=== PATIENT | male | born 1970 | race Caucasian/White ===

== ENCOUNTER 2017-10-13 13:07 | Emergency (ER) | payer OTHER ==
[~2017-10-13] VITALS: Ht 175.3 cm; Wt 121.8 kg
[~2017-10-13 13:07] MED LIST: BLOOD PRESSURE MEDS; COUMADIN 1MG1 MG/TAB PO; COUMADIN 2MG2 MG/TAB PO; COUMADIN4 MG PO; LOVENOX150 MG/ML SC; NO HOME MEDICATIONS; NORCO 325 MG-51 TAB PO; NORCO 325 MG-7.1 TAB PO; PERCOCET 500 MG1 TAB PO; PHENERGAN 25 TA25 MG PO; TYLENOL 500MG500 MG PO; TYLENOL PM EXTR1 TA1 PO; ZESTORETIC 12.51 TA1 PO
[2017-10-13 13:10] VITALS: TEMP 100.3
[2017-10-13] MEDS ORDERED: ASPIRIN 81M81 MG/TA2 PO (14:49)
[2017-10-13] MEDS ORDERED: CLEOCIN HCL300 MG PO (15:14)
[2017-10-13 15:23] VITALS: BP 189/140; PULSE 97
[2017-10-13] MEDS ORDERED: ZESTORETIC 12.51 TA1 PO (15:24)
== END 2017-10-13 15:43 | disposition home or self-care (01) ==
LOC: COL.ER 13:07
DX: H00.031 Abscess of right upper eyelid (principal); H00.021 Hordeolum internum right upper eyelid; Z79.82 Long term (current) use of aspirin

== ENCOUNTER 2018-01-25 12:00 | Outpatient (RCR) | payer OTHER ==
[~2018-01-25 12:00] MED LIST changes: +ASPIRIN 81M81 MG/TA2 PO; +CLEOCIN HCL300 MG PO
== END 2018-01-25 15:43 | disposition home or self-care (01) ==
LOC: WSPT 12:00
DX: Z47.1 Aftercare following joint replacement surgery (principal); Z96.652 Presence of left artificial knee joint

== ENCOUNTER 2022-01-22 18:10 | Emergency (ER) | payer OTHER ==
[~2022-01-22] VITALS: Ht 172.7 cm; Wt 114.5 kg
[2022-01-22 18:20] VITALS: TEMP 98
[2022-01-22 18:43] LABS: COLLECTION METHOD CLEAN CATCH
[2022-01-22 18:47] LABS: HEMATOCRIT 46.7 % (42.0-52.0); HEMOGLOBIN 16.1 g/dl (13.5-18.0); MEAN CELL VOLUME 84 fl (80.0-100.0); MEAN CORPUSCULAR HEMOGLOBIN 29 pg (27-31); MEAN CORPUSCULAR HGB CONC 35 g/dl (33.0-37.0); MEAN PLATELET VOLUME 9.3 fl (7.4-10.4); PLATELET COUNT 258 K/mm3 (130-400); RED BLOOD COUNT 5.56 M/mm3 (4.20-5.60); REDCELL DISTRIBUTION WIDTH-CV 13.2 % (11.5-14.5)
[2022-01-22 18:59] LABS: MUCOUS Present (NOT PRESENT); PH 5 (5-8); SQUAMOUS EPITHELIAL 0-2 /hpf (0-10); URINE APPEARANCE Clear (CLEAR/HAZY); URINE BACTERIA None Seen /hpf (NONE SEEN); URINE BILIRUBIN Negative (NEGATIVE); URINE BLOOD 1+ (NEGATIVE); URINE COLOR Yellow (YELLOW); URINE GLUCOSE Negative (NEGATIVE); URINE KETONE Negative (NEGATIVE); URINE LEUKOCYTE ESTERASE Negative (NEGATIVE); URINE NITRATE Negative (NEGATIVE); URINE PROTEIN(semi-quant) Negative (NEGATIVE); URINE RBC 0-2 /hpf (0-2); URINE UROBILINOGEN Negative (NEGATIVE)
[2022-01-22 19:05] LABS: BILIRUBIN,TOTAL 0.4 mg/dL (0.2-1.2); CREATININE, serum 1.56 mg/dL (0.72-1.25); POTASSIUM 3.8 mmol/L (3.5-4.5)
[2022-01-22 19:53] LABS: BAND 2 % (0-10); LYMPHOCYTE 28 % (20.0-51.0); NEUTROPHILS 62 % (42.0-75.2); PLATELET ESTIMATE NORMAL (NORMAL)
[2022-01-22] MEDS ORDERED: PERCOCET 325 MG1 TA2 PO (20:30)
[2022-01-22] MEDS ORDERED: FLOMAX 0.40.4 MG/CAP PO (20:32)
[2022-01-22 20:50] VITALS: BP 124/78; PULSE 76
== END 2022-01-22 20:50 | disposition home or self-care (01) ==
LOC: COL.ER 18:10
PROVIDERS: Physician Assistant
DX: N13.2 Hydronephrosis with renal and ureteral calculous obstruction (principal); I50.9 Heart failure, unspecified; Z87.891 Personal history of nicotine dependence; Z28.310 Unvaccinated for COVID-19; Z79.899 Other long term (current) drug therapy
CPT/HCPCS: J1170; J2270; J2405; Q9967